=== PATIENT | male | born 1985 | race Caucasian/White ===

== ENCOUNTER 2025-01-05 07:51 | Emergency (ER) | payer MEDICAID, OTHER ==
[~2025-01-05] VITALS: Ht 177.8 cm; Wt 73.0 kg
[2025-01-05 07:53] VITALS: BP 134/82; PULSE 104; RESP 16; TEMP 36.5; O2SAT 100
[2025-01-05] MEDS: ONDANSETRON 4MG ODT PO ONE (08:30)
[2025-01-05 09:13] LABS: BASOPHILS % 0.3 % (0.0-2.0); EOSINOPHILS % 1.4 % (0.0-5.0); HEMATOCRIT. 45.1 % (42.0-52.0); HEMOGLOBIN. 15.4 g/dL (14.0-18.0); LYMPHOCYTES % 15.2 % (20.0-50.0); MEAN CORPUSCULAR HEMOGLOBIN 29.5 pg (28.0-32.0); MEAN CORPUSCULAR HGB CONC 34.1 g/dL (31.0-37.0); MEAN CORPUSCULAR VOLUME 86.4 fL (80.0-94.0); MEAN PLATELET VOLUME 7.9 fl (7.4-10.4); MONOCYTES % 3.8 % (2.0-8.0); NEUTROPHILS % 79.3 % (40.0-76.0); PLATELET 271 x1000/uL (130-400); RED BLOOD CELL COUNT 5.23 mill/uL (4.7-6.1); RED CELL DISTRIBUTION WIDTH 12.7 % (11.6-14.6); WHITE BLOOD COUNT 7.8 x1000/uL (4.5-11.0)
[2025-01-05 09:25] LABS: CHLORIDE 104 mEq/L (98-107); SODIUM 138 mEq/L (136-145)
[2025-01-05 09:26] LABS: CARBON DIOXIDE 27 mEq/L (21-32)
[2025-01-05 09:27] LABS: CALCIUM 9.1 mg/dL (8.7-10.4)
[2025-01-05 09:31] LABS: CREATININE 0.8 mg/dL (0.6-1.3); GLUCOSE 121 mg/dL (70-105)
[2025-01-05 09:33] LABS: ETHANOL BLOOD < 10 mg/dL (<10); TROPONIN I HIGH SENSITIVITY < 4 ng/L (3.0-53)
[2025-01-05 09:34] LABS: UREA NITROGEN BLOOD 12 mg/dL (9-23)
[2025-01-05 11:04] VITALS: TEMP 97.7
[2025-01-05] MEDS: ACETAMINOPHEN 500MG TABLET PO ONE (11:04)
== END 2025-01-05 12:15 | disposition home or self-care (01) ==
LOC: ER 07:51
DX: R42 Dizziness and giddiness (principal); F41.9 Anxiety disorder, unspecified
CPT/HCPCS: 80048; 80320; 85025; 84484; 36415; 70450; 93005; 99284; Q0162; G0480